=== PATIENT | male | born 1930 | race Caucasian/White ===

== ENCOUNTER 2017-08-01 03:27 | Inpatient (IN) | payer MEDICARE ==
--- NOTE | 2017-08-01 04:06 | PDOC.FPRHP ---
- History of Present Illness Chief Complaint: weakness History of Present Illness: This is an 87 y/o M with a PMHx of a-fib, CAD s/p CABG, HTN, HLD who presents to the ED complaining of weakness. The patient reports that 3 days ago he started developing generalized weakness where he was struggling getting out of the bed, walking, doing his normal routine. He reports falling on his side 3 days ago as well due to this weakness and hurting his ribs on his right side. He did not seek any medical attention at that time. The only other symptoms the patient endorses is 3 days of worsened urinary incontinence. He reports that he has had more trouble making it to the bathroom on time. He has a history significant for BPH. He also reports a cough that has been chronic and is non- productive as well as constant sinus drainage that he describes as going on for years. The patient has also been having watery drainage from his eyes over the past few days. The patient denies CP, SOB, dysuria, abd pain, N/V/D. ED Course: The patient was evaluated in the [facility] and was given 1L NS, tylenol 1g, aspirin 324mg, Rocephin 1g, and started on a diltiazem drip. - Allergies/Adverse Reactions Allergies Allergy/AdvReac Type Severity Reaction Status Date / Time atropine sulfate Allergy Unknown Verified 07/24/13 16:43 [From Lomotil] diphenoxylate HCl Allergy Unknown Verified 07/24/13 16:43 [From Lomotil] codeine Allergy Verified 07/24/13 16:43 dronedarone [From Multaq] Allergy Verified 08/01/17 06:52 morphine Allergy Verified 07/24/13 16:43 tramadol Allergy Verified 08/01/17 06:53 - Home Medications Medication Instructions Recorded Confirmed Type Levothyroxine Sodium [Synthroid] 50 mcg PO DAILY 08/05/13 02/28/15 History Lisinopril [Zestril] 20 mg PO HS 08/05/13 02/28/15 History Aspirin [Ecotrin Low Strength] 81 mg PO HS 02/17/15 02/28/15 History Nitroglycerin [Nitrostat] 0.4 mg SL Q5MIN PRN 02/17/15 02/28/15 History Isosorbide Mononitrate [Imdur ER] 30 mg PO DAILY #0 tab 02/18/15 02/28/15 Rx Fluticasone Propionate [Flonase 1 spray EA NARE HS 02/27/15 02/27/15 History Nasal Christoval] Amlodipine [Norvasc] 5 mg PO DAILY 08/01/17 08/01/17 History Apixaban [Eliquis] 2.5 mg PO BID 08/01/17 08/01/17 History Ezetimibe [Zetia] 10 mg PO DAILY 08/01/17 08/01/17 History Ferrous Sulfate 325 mg PO DAILY 08/01/17 08/01/17 History Naproxen Sodium [Aleve] 220 mg PO DAILY 08/01/17 08/01/17 History Omeprazole 20 mg PO BID 08/01/17 08/01/17 History - History PMHx: 1. a-fib 2. CAD s/p CABG 3. HTN 4. HLD 5. Hypothyroidism 6. GERD 7. BPH PSHx: 1. CABG 2. Cholecystectomy 3. Back surgery FHx: Brother - CAD (87) Social: Denies tobacco, EtOH, or drug use PCP: Dr. Fermín Krueger Director Social Welfare: Dr. Art Ortiz - Review of Systems General: reports: fatigue. denies: fever/chills Eyes: denies: eye pain, vision changes ENT: reports: nasal congestion. denies: rhinorrhea Respiratory: reports: cough. denies: congestion, shortness of breath Cardiovascular: denies: chest pain, palpitation, edema Gastrointestinal: denies: nausea, vomiting, diarrhea, constipation, abdominal pain Genitourinary: reports: incontinence. denies: dysuria Skin: denies: rashes, lesions Musculoskeletal: reports: tenderness (R lower ribs). denies: pain Neurological: reports: weakness (generalized). denies: numbness - Vital signs BP: 147/73 HR: 107 (was 123 at the [facility]) RR: 19 Tmax: 100.9 Pox: 97% on RA Wt: 65.77kg - Physical Exam Constitutional: NAD, awake, alert and oriented, well developed HEENT: PERRLA, EOMI, no scleral icterus, grossly normal vision, normal nasal mucosa, MMM, oropharynx clear, other (erythematous conjunctiva, hearing aids in place bilaterally) Neck: supple, no LAD, no bruits -Heart: irregularly irregular, tachycardic, systolic murmur, no rubs, no peripheral edema Lungs: CTAB, no respiratory distress, no rales/rhonchi, no wheezing, no retractions Abdomen: soft, non-tender, bowel sounds present, no masses/distention Musculoskeletal: normal structure, normal tone, ROM grossly normal, other ( tenderness over R lower ribs) Neurological: no focal deficit, normal sensation Skin: no rash/lesions, good turgor, capillary refill <2 seconds Psychiatric: normal mood and affect, good judgment and insight FMR H&P: Results - Labs Lab results: Laboratory Tests 08/01/17 08/01/17 08/01/17 01:29 01:29 01:29 WBC 12.6 H Hgb 12.5 L Hct 37.9 L Plt Count 200 Neutrophils % (Manual) 64 Band Neuts % (Manual) 19 H Sodium 135 L Potassium 4.1 Chloride 106 Carbon Dioxide 20 L BUN 31 H Creatinine 1.69 H Estimated GFR (MDRD) 38 Lactic Acid CK-MB (CK-2) 5.7 Troponin I 0.030 H Ur Specific [place] Urine Protein Urine Glucose (UA) Urine Ketones Urine Blood Urine Nitrite Ur Leukocyte Esterase Urine WBC Urine Bacteria 08/01/17 08/01/17 01:50 02:10 WBC Hgb Hct Plt Count Neutrophils % (Manual) Band Neuts % (Manual) Sodium Potassium Chloride Carbon Dioxide BUN Creatinine Estimated GFR (MDRD) Lactic Acid 0.9 CK-MB (CK-2) Troponin I Ur Specific [place] 1.020 Urine Protein 100 H Urine Glucose (UA) Negative Urine Ketones Trace H Urine Blood Moderate H Urine Nitrite Negative Ur Leukocyte Esterase Negative Urine WBC 0-3 Urine Bacteria None Seen - EKG Interpretation EKG: a-fib with rapid ventricular response - Radiology Interpretation Chest x-ray Status: image reviewed by me Additional comment: Pending official read, concern for possible infiltrate vs atelectasis FMR H&P: A/P - Problem List (1) Atrial fibrillation with rapid ventricular response Current Visit: Yes Status: Acute Code(s): I48.91 - UNSPECIFIED ATRIAL FIBRILLATION (2) Systemic inflammatory response syndrome, unspecified Current Visit: Yes Status: Acute Code(s): R65.10 - SIRS OF NON-INFECTIOUS ORIGIN W/O ACUTE ORGAN DYSFUNCTION (3) Elevated troponin Current Visit: Yes Status: Acute Code(s): R74.8 - ABNORMAL LEVELS OF OTHER SERUM ENZYMES (4) GERD (gastroesophageal reflux disease) Current Visit: Yes Status: Acute Code(s): K21.9 - GASTRO-ESOPHAGEAL REFLUX DISEASE WITHOUT ESOPHAGITIS Qualifiers: Esophagitis presence: without esophagitis Qualified Code(s): K21.9 - Gastro -esophageal reflux disease without esophagitis (5) Hyperlipidemia Current Visit: Yes Status: Acute Code(s): E78.5 - HYPERLIPIDEMIA, UNSPECIFIED Qualifiers: Hyperlipidemia type: unspecified Qualified Code(s): E78.5 - Hyperlipidemia , unspecified (6) CAD (coronary artery disease) Current Visit: Yes Status: Acute Code(s): I25.10 - ATHSCL HEART DISEASE OF [place] CORONARY ARTERY W/O ANG PCTRS Qualifiers: Coronary Disease-Associated Artery/Lesion type: [place] artery [place] vs. transplanted heart: [place] heart Associated angina: angina presence unspecified Qualified Code(s): I25.10 - Atherosclerotic heart disease of [place] coronary artery without angina pectoris (7) Hypertension Current Visit: No Status: Acute Code(s): I10 - ESSENTIAL (PRIMARY) HYPERTENSION Qualifiers: Hypertension type: essential hypertension Qualified Code(s): I10 - Essential (primary) hypertension (8) Hypothyroidism Current Visit: No Status: Acute Code(s): E03.9 - HYPOTHYROIDISM, UNSPECIFIED Qualifiers: Hypothyroidism type: acquired Qualified Code(s): E03.9 - Hypothyroidism, unspecified (9) BPH (benign prostatic hyperplasia) Current Visit: Yes Status: Acute Code(s): N40.0 - BENIGN PROSTATIC HYPERPLASIA WITHOUT LOWER URINRY TRACT SYMP Qualifiers: Lower urinary tract symptom presence: symptoms present Lower urinary tract symptom detail: unspecified Qualified Code(s): N40.1 - Benign prostatic hyperplasia with lower urinary tract symptoms - Plan A-fib w/ RVR The patient has a longstanding history of a-fib and is treated by Dr. Ortiz at the [facility]. The patient is a poor historian and doesn't know what medications he used to be on, but does not appear to be on a rate or rhythm control med at this time. He is anticoagulated with Eliquis 2.5 mg BID. The a-fib with RVR is likely 2/2 infection. The patient was started on a Cardizem gtt in the ED. -Continue Cardizem gtt, will titrate as needed to rate <100 -TSH, Mag, Phos -Continue Eliquis and ASA -Trend Cardiac Enzymes as patient's initial trop was in the indeterminate range -Request records from Dr. Ortiz's office SIRS / with unknown source - suspected CAP The patient had fever to 100.9 in the [facility] as well as leukocytosis with 19 % bands and tachycardia. The patient has had a chronic cough, but also has a possible infiltrate on CXR. Will await official read from the radiologist. S/P fluid bolus in the ED -Rocephin and Azithromycin -NS @ 125 -Urine Cx -Blood Cx Indeterminate Troponins Initial trop was 0.03. The patient has a h/o 4v CABG. The patient reports his last nuclear stress test was [address] Ortiz and was normal. -Continue aspirin -Trend Cardiac Enzymes -Monitor on Tele -Repeat EKG for any chest pain CKD3 The patient appears at his baseline creatinine. -avoid nephrotoxic agents HTN -Continue home meds Hypothyroidism -TSH -Continue home meds CAD s/p CABG -Continue home meds -Heart healthy diet HLD -Continue home meds GERD -Continue home meds Disposition/LOS: Admit to Tele, Length of stay likely 2 days FMR H&P: Upper Level - Pertinent history This is an 87 yo WM w/ PMH CAD s/p CABG x4, Paroxysmal A-fib, HTN, HLD, hypothyroidism, presents w/ 3 day history of weakness. He was found to be in A- fib w/ RVR at [facility] and given ASA and Rocephin, 1L NS, as well as started on Diltiazem and transferred here. His Flu swab was negative. He does have a chronic cough, and was found to have a fever of 100.9. PE: Gen: AOx4, In no acute distress. Lungs: CTA bilaterally, but mildly diminished air movement. CV: Irregularly, irregular. +2 systolic murmur Neck: No lymph nodes, no carotid bruits Abd: Non-TTP. No rigiditiy, no guarding. Ext: No edema bilaterally LE. Neuro: GCS 15. Negative Pronator drift. Strength +5/5 UE and LE symmetric bilaterally. CN II-XII intact grossly. A/p: 1) A-fib w/ RVR - possibly due to infection from CAP. Continue Cardizem drip. We will check a TSH, Mag, Phos, Urine culture, blood Cx. Continue Rocephin. F/ u with Cardiac enzymes x3. Continue Eliquis, ASA and home medications. 2) Suspected CAP - Rocephin and Azithromycin, fluids. Repeat CXR in 3-4 weeks outpatient to ensure resolves. 3) Hematuria - likely 2/2 traumatic de leon placement. F/u with PCP in 1 week for repeat UA. F/u with urine Cx. 4) Metabolic acidosis - likely 2/2 mild dehydration. F/u with BMP tomorrow. Gentle Fluids. 5) CKD3 - avoid nephrotoxic medications. 6) Indeterminant Troponin's - We will repeat CE x3. Per patient, last nuclear stress test was with Dr. Angel marinelli 6 months ago, and he was told it was "good ". F/u with records from Dr. Ortiz's office. 7) HTN - continue home medications as BP tolerates them. 8) Hypothyroidism - continue home medications. F/u with TSH. - Plan Date/Time: 08/01/17 0103 I, Gwendolyn Ace DO, have evaluated this patient and agree with findings/plan as outlined by international specialist resident. Pertinent changes/additions are listed here. Attending Addendum - Attending Addendum Date/Time: 08/01/17 [id number] I personally evaluated the patient and discussed the management with Dr. Schwarz I agree with the History, Examination, Assessment and Plan documented above with any addition or exceptions noted below. Critical shortage of IV Diltiazem need conversion po BB or diltiazem. Obtain Cardiology records Art Ortiz inquire last echocardiogram repeat as appropriate antibiotic coverage for CAP await culture results.
[2017-08-01] MEDS ORDERED: Diltiazem 125 MG in Sodium Chloride 0.9% 100 ML IVPB SCH (06:03)
[2017-08-01] MEDS ORDERED: Sodium Chloride 0.9% 1,000 ML IV SCH (06:03)
[2017-08-01 06:30] VITALS: BMI 25.6
[2017-08-01] MEDS ORDERED: Azithromycin 500 MG in Sodium Chloride 0.9% 250 ML 250 ML IVPB SCH (06:30)
[2017-08-01 06:59] LABS: Magnesium 1.7 mg/dL (1.6-2.6); Phosphorus 2.2 mg/dL (2.3-4.7)
[2017-08-01 07:07] LABS: Troponin I 0.038 ng/mL (< 0.028)
[2017-08-01 07:10] LABS: CKMB 6.7 ng/mL (0-6.6)
[2017-08-01] MEDS: Ezetimibe 10 MG TAB PO SCH (08:18)
[2017-08-01] MEDS: Ferrous Sulfate 325 MG TAB PO SCH (08:18)
[2017-08-01] MEDS: Apixaban 5 MG TAB PO SCH ×2 (08:18→20:41)
[2017-08-01] MEDS: Amlodipine 5 MG TAB PO SCH (08:18)
[2017-08-01] MEDS ORDERED: Diltiazem HCl SR 60 mg Capsule PO SCH (09:00)
[2017-08-01 09:44] LABS: CKMB 6.3 ng/mL (0-6.6); Troponin I 0.028 ng/mL (< 0.028)
--- NOTE | 2017-08-01 16:03 | RAD ---
RIGHT RIBS THREE VIEWS CHEST ONE VIEW: History: Fall. Right chest wall pain. FINDINGS: No displaced rib fracture or pneumothorax are apparent. Multifocal parenchymal patchy opacity involvi ng the right upper and lower lobes and the left upper lobe have progressed since the prior study. Oziel nting of the left lateral costophrenic angle has the appearance of a small amount of pleural fluid. M ediastinum is midline with post-operative changes and aortic calcification. IMPRESSION: 1. No evidence of displaced rib fracture or pneumothorax. 2. Possession of multifocal common bilateral parenchymal infiltrates and left pleural fluid. Clinical correlation regarding other signs of symptoms of multifocal pneumonitis is required. Close continue radiographic follow up with upright PA and lateral views of the chest suggested. POS: BHANU
[2017-08-01] MEDS: Lisinopril 10 MG TAB PO SCH (20:41)
[2017-08-01] MEDS: Aspirin 81 mg Enteric Coated Tablet PO SCH (20:41)
[2017-08-01] MEDS: Fluticasone Propionate Nasal Spray 16 gm Bottle NASAL SCH (21:53)
[2017-08-02] MEDS: cefTRIAXone\\ROCEPHIN 1 GM in Syringe 10 ML SLOW IVP SCH (04:09)
[2017-08-02 05:31] LABS: #Eosinphils 0.1 thou/uL (0.0-0.7); #Lymphocytes 2.1 thou/uL (1.20-3.40); #Monocytes 1.2 thou/uL (0.11-0.59); #Neutrophils 10.3 thou/uL (1.40-6.50); %Basophils 0.2 % (0.0-1.0); %Eosinophils 0.4 % (0.0-10.0); %Monocytes 9.1 % (0.0-10.0); %Neutrophils 75.4 % (42.0-75.0); Hemoglobin 12.6 g/dL (14.0-18.0); Mean Corpuscular HGB CONC 33.1 g/dL (32.0-36.0); Mean Corpuscular Hemoglobin 33.5 pg (27.0-31.0); Mean Platelet Volume 8.2 fL (7.4-10.4); Platelet Count 230 thou/uL (130-400); RBC Distribution Width 12.4 % (11.5-14.5); Red Blood Cell (RBC) Count 3.76 mill/uL (4.70-6.10); White Blood Cell (WBC) Count 13.7 thou/uL (4.8-10.8)
[2017-08-02 05:57] LABS: Anion Gap 16 mmol/L (10-20); BUN (Urea Nitrogen) 28 mg/dL (8.4-25.7); Calc. Creatinine Clearance 34 mL/min (70-130); Calcium 9.1 mg/dL (7.8-10.44); Carbon Dioxide 16 mmol/L (23-31); Chloride 106 mmol/L (98-107); Estimated GFR-MDRD 45; Glucose 95 mg/dL (83-110); Potassium 4.2 mmol/L (3.5-5.1); Sodium 134 mmol/L (136-145)
[2017-08-02] MEDS: Levothyroxine Sodium 50 MCG TAB PO SCH (06:02)
--- NOTE | 2017-08-02 06:10 | PDOC.FM ---
- Subjective Subjective: Patient states he slept well overnight. He woke up this morning and felt weak. It was noted that he went back into A-fib with RVR at 06:42 this morning which is approximately when his weakness began. He denies palpitations, but usually he doesn't ever feel them. He denies chest pain, sob, n/v/d. He had no other complaints this morning. - Objective Vital Signs & Weight: Vital Signs (12 hours) Temp Pulse Resp BP BP Pulse Ox 08/02/17 00:00 98.8 F 93 20 132/60 94 L 08/01/17 20:41 146/63 H 08/01/17 20:00 98.5 F 79 20 146/73 H 95 Weight Weight 69.763 kg I&O: 07/31/17 08/01/17 08/02/17 06:59 06:59 06:59 Intake Total 720 Output Total 620 Balance 100 Result Diagrams: 08/02/17 04:07 08/02/17 04:07 <Brent Baker - Last Filed: 08/02/17 08:45> - Objective Vital Signs & Weight: Vital Signs (12 hours) Temp Pulse Resp BP Pulse Ox 08/02/17 08:00 98.3 F 97 18 96 08/02/17 07:15 98.3 F 97 18 175/80 H 96 08/02/17 04:00 98.7 F 107 H 20 136/71 95 Weight Weight 69.717 kg I&O: 08/01/17 08/02/17 08/03/17 06:59 06:59 06:59 Intake Total 1140 Output Total 1070 Balance 70 Result Diagrams: 08/02/17 04:07 08/02/17 04:07 <Tushar Cortez - Last Filed: 08/02/17 12:29> Phys Exam - Physical Examination HEENT: moist MMs Respiratory: no wheezing, clear to auscultation bilateral Cardiovascular: irregular Gastrointestinal: soft, non-tender, no distention, positive bowel sounds Musculoskeletal: no edema Neurological: non-focal, moves all 4 limbs Lymphatic: no nodes Psychiatric: normal affect, A&O x 3 Skin: no rash <Brent Baker - Last Filed: 08/02/17 08:45> Dx/Plan (1) Atrial fibrillation with rapid ventricular response Code(s): I48.91 - UNSPECIFIED ATRIAL FIBRILLATION Status: Acute (2) BPH (benign prostatic hyperplasia) Code(s): N40.0 - BENIGN PROSTATIC HYPERPLASIA WITHOUT LOWER URINRY TRACT SYMP Status: Acute QualifierTitle: Lower urinary tract symptom presence: symptoms present Lower urinary tract symptom detail: unspecified Qualified Code(s): N40.1 - Benign prostatic hyperplasia with lower urinary tract symptoms (3) CAD (coronary artery disease) Code(s): I25.10 - ATHSCL HEART DISEASE OF [place] CORONARY ARTERY W/O ANG PCTRS Status: Acute QualifierTitle: Coronary Disease-Associated Artery/Lesion type: [place] artery [place] vs. transplanted heart: [place] heart Associated angina: angina presence unspecified Qualified Code(s): I25.10 - Atherosclerotic heart disease of [place] coronary artery without angina pectoris (4) Elevated troponin Code(s): R74.8 - ABNORMAL LEVELS OF OTHER SERUM ENZYMES Status: Acute (5) GERD (gastroesophageal reflux disease) Code(s): K21.9 - GASTRO-ESOPHAGEAL REFLUX DISEASE WITHOUT ESOPHAGITIS Status: Acute QualifierTitle: Esophagitis presence: without esophagitis Qualified Code( s): K21.9 - Gastro-esophageal reflux disease without esophagitis (6) Hyperlipidemia Code(s): E78.5 - HYPERLIPIDEMIA, UNSPECIFIED Status: Acute QualifierTitle: Hyperlipidemia type: unspecified Qualified Code(s): E78.5 - Hyperlipidemia, unspecified (7) Systemic inflammatory response syndrome, unspecified Code(s): R65.10 - SIRS OF NON-INFECTIOUS ORIGIN W/O ACUTE ORGAN DYSFUNCTION Status: Acute (8) Hypertension Code(s): I10 - ESSENTIAL (PRIMARY) HYPERTENSION Status: Acute QualifierTitle: Hypertension type: essential hypertension Qualified Code( s): I10 - Essential (primary) hypertension (9) Hypothyroidism Code(s): E03.9 - HYPOTHYROIDISM, UNSPECIFIED Status: Acute QualifierTitle: Hypothyroidism type: acquired Qualified Code(s): E03.9 - Hypothyroidism, unspecified - Plan Plan: A-fib w/ RVR The patient has a longstanding history of a-fib and is treated by Dr. Ortiz at the [facility]. The patient is a poor historian and doesn't know what medications he used to be on, but does not appear to be on a rate or rhythm control med at this time. He is anticoagulated with Eliquis 2.5 mg BID. The a-fib with RVR is likely 2/2 infection. The patient was started on a Cardizem gtt in the ED. -Cardizem gtt discontinued. Started oral Diltiazem rates been below 100 -Continue Eliquis and ASA SIRS 2/2 with unknown source - suspected CAP The patient had fever to 100.9 in the [place] ED as well as leukocytosis with 19 % bands and tachycardia. The patient has had a chronic cough, but also has a possible infiltrate on CXR. Will await official read from the radiologist. S/P fluid bolus in the ED -Rocephin and Azithromycin -NS @ 125 -Urine Cx -Blood Cx Indeterminate Troponins Initial trop was 0.03. The patient has a h/o 4v CABG. The patient reports his last nuclear stress test was [address] Ortiz and was normal. -Continue aspirin -Cardiac enzymes trended down. -Monitor on Tele -Repeat EKG for any chest pain CKD3 The patient appears at his baseline creatinine. -avoid nephrotoxic agents HTN -Continue home meds Hypothyroidism -Continue home meds CAD s/p CABG -Continue home meds -Heart healthy diet HLD -Continue home meds GERD -Continue home meds Disposition: Stable, will await culture results and sustained rate control. <Brent Baker - Last Filed: 08/02/17 08:45> (1) Atrial fibrillation with rapid ventricular response Code(s): I48.91 - UNSPECIFIED ATRIAL FIBRILLATION Status: Acute (2) Systemic inflammatory response syndrome, unspecified Code(s): R65.10 - SIRS OF NON-INFECTIOUS ORIGIN W/O ACUTE ORGAN DYSFUNCTION Status: Acute (3) Elevated troponin Code(s): R74.8 - ABNORMAL LEVELS OF OTHER SERUM ENZYMES Status: Acute (4) GERD (gastroesophageal reflux disease) Code(s): K21.9 - GASTRO-ESOPHAGEAL REFLUX DISEASE WITHOUT ESOPHAGITIS Status: Acute Qualifiers: Esophagitis presence: without esophagitis Qualified Code(s): K21.9 - Gastro -esophageal reflux disease without esophagitis (5) Hyperlipidemia Code(s): E78.5 - HYPERLIPIDEMIA, UNSPECIFIED Status: Acute Qualifiers: Hyperlipidemia type: unspecified Qualified Code(s): E78.5 - Hyperlipidemia , unspecified (6) CAD (coronary artery disease) Code(s): I25.10 - ATHSCL HEART DISEASE OF [place] CORONARY ARTERY W/O ANG PCTRS Status: Acute Qualifiers: Coronary Disease-Associated Artery/Lesion type: [place] artery [place] vs. transplanted heart: [place] heart Associated angina: angina presence unspecified Qualified Code(s): I25.10 - Atherosclerotic heart disease of [place] coronary artery without angina pectoris (7) Hypertension Code(s): I10 - ESSENTIAL (PRIMARY) HYPERTENSION Status: Acute Qualifiers: Hypertension type: essential hypertension Qualified Code(s): I10 - Essential (primary) hypertension (8) Hypothyroidism Code(s): E03.9 - HYPOTHYROIDISM, UNSPECIFIED Status: Acute Qualifiers: Hypothyroidism type: acquired Qualified Code(s): E03.9 - Hypothyroidism, unspecified (9) BPH (benign prostatic hyperplasia) Code(s): N40.0 - BENIGN PROSTATIC HYPERPLASIA WITHOUT LOWER URINRY TRACT SYMP Status: Acute Qualifiers: Lower urinary tract symptom presence: symptoms present Lower urinary tract symptom detail: unspecified Qualified Code(s): N40.1 - Benign prostatic hyperplasia with lower urinary tract symptoms <Tushar Cortez - Last Filed: 08/02/17 12:29> Attending Addendum - Attending Addendum Date/Time: 08/02/17 1227 I personally evaluated the patient and discussed the management with Dr. Baker I agree with the History, Examination, Assessment and Plan documented above with any addition or exceptions noted below.note CXR report Zosyn added to iv regimen cover possible aspiration, po cardizem for heart rate control, Magnesium IV today. <Tushar Cortez - Last Filed: 08/02/17 12:29>
[2017-08-02] MEDS ORDERED: Metoprolol Tartrate 5 MG/5 ML VIAL IVP PRN (08:08)
[2017-08-02] MEDS: Azithromycin 250 MG TAB PO SCH (08:20)
[2017-08-02] MEDS: Amlodipine 5 MG TAB PO SCH (08:20)
[2017-08-02] MEDS: Apixaban 5 MG TAB PO SCH ×2 (08:20→21:35)
[2017-08-02] MEDS: Ezetimibe 10 MG TAB PO SCH (08:21)
[2017-08-02] MEDS: Ferrous Sulfate 325 MG TAB PO SCH (08:21)
--- NOTE | 2017-08-02 09:52 | RAD ---
CHEST PA AND LATERAL: History: 87-year-old male with history of shortness of breath. Comparison: 08-01-17 FINDINGS: Post underlying sternotomy. Some progressive parenchymal changes in the right mid lung zone and perih ilar region as well as the right lower lobe. In addition there appear to be more marked linear and in terstitial increased markings bilaterally in the perihilar region. Stable left pleural thickening. St able new small bilateral pleural effusions. IMPRESSION: Worsening alveolar parenchymal changes in the right mid lung zone and right infra hilar region inge duarte concern for some right lower lobe and right midlung zone pneumonia. Developing bilateral vascular c ongestion, interstitial edema, and pleural effusions probably representing some degree of congestive heart failure and pulmonary edema as well. Continued short term follow up for complete clearing is alejandro ggested. Code T POS: BHANU
[2017-08-02] MEDS ORDERED: Magnesium Sulfate 1 GM, Admixture Fee 1 EACH in Sodium Chloride 0.9% 100 ML IVPB SCH (10:45)
[2017-08-02] MEDS: Piperacillin/Tazobactam 3.375 GM in Sodium Chloride 0.9% 100 ML IVPB SCH (18:15)
[2017-08-02] MEDS: Lisinopril 10 MG TAB PO SCH (21:35)
[2017-08-02] MEDS: Aspirin 81 mg Enteric Coated Tablet PO SCH (21:35)
[2017-08-02] MEDS: Fluticasone Propionate Nasal Spray 16 gm Bottle NASAL SCH (21:36)
[2017-08-03] MEDS: Piperacillin/Tazobactam 3.375 GM in Sodium Chloride 0.9% 100 ML IVPB SCH ×5 (00:15→18:23)
[2017-08-03] MEDS ORDERED: Furosemide 40 MG/4 ML VIAL ONE (00:38)
[2017-08-03] MEDS: cefTRIAXone\\ROCEPHIN 1 GM in Syringe 10 ML SLOW IVP SCH (04:28)
[2017-08-03] MEDS ORDERED: Acetaminophen 325 MG TAB PO SCH (05:23)
[2017-08-03 05:45] LABS: #Lymphocytes 1.7 thou/uL (1.20-3.40); #Monocytes 1.4 thou/uL (0.11-0.59); #Neutrophils 14.1 thou/uL (1.40-6.50); %Basophils 0.1 % (0.0-1.0); %Eosinophils 0.1 % (0.0-10.0); %Lymphocytes 10.1 % (21.0-51.0); %Monocytes 8.2 % (0.0-10.0); %Neutrophils 81.5 % (42.0-75.0); Hemoglobin 12.8 g/dL (14.0-18.0); Mean Corpuscular HGB CONC 31.6 g/dL (32.0-36.0); Mean Platelet Volume 8.7 fL (7.4-10.4); Platelet Count 254 thou/uL (130-400); RBC Distribution Width 12.6 % (11.5-14.5); White Blood Cell (WBC) Count 17.3 thou/uL (4.8-10.8)
[2017-08-03 05:46] LABS: Anion Gap 18 mmol/L (10-20); BUN (Urea Nitrogen) 24 mg/dL (8.4-25.7); Calc. Creatinine Clearance 31 mL/min (70-130); Calcium 9.6 mg/dL (7.8-10.44); Carbon Dioxide 17 mmol/L (23-31); Chloride 101 mmol/L (98-107); Estimated GFR-MDRD 41; Glucose 96 mg/dL (83-110); Potassium 4.3 mmol/L (3.5-5.1); Sodium 132 mmol/L (136-145)
[2017-08-03] MEDS: Levothyroxine Sodium 50 MCG TAB PO SCH (05:52)
[2017-08-03] MEDS ORDERED: Furosemide 40 MG/4 ML VIAL SLOW IVP SCH (06:00)
--- NOTE | 2017-08-03 06:24 | PDOC.FM ---
- Subjective Subjective: Patient had an episode of desaturation and sob overnight. He was given IV lasix with diuresis. He states his breathing is not labored any longer. He denies chest pain or sob. He does state that he is very tired today. No other complaints this morning. - Objective Vital Signs & Weight: Vital Signs (12 hours) Temp Pulse Resp BP BP Pulse Ox 08/03/17 00:00 89 L 08/02/17 21:35 133/64 08/02/17 20:25 100.4 F H 95 18 133/64 100 08/02/17 20:00 100.4 F H 95 18 100 Weight Weight 69.717 kg I&O: 08/01/17 08/02/17 08/03/17 06:59 06:59 06:59 Intake Total 1140 720 Output Total 1070 Balance 70 720 Result Diagrams: 08/03/17 03:56 08/03/17 03:56 <Brent Baker - Last Filed: 08/03/17 08:37> - Objective Vital Signs & Weight: Vital Signs (12 hours) Temp Pulse Pulse Pulse Resp BP BP 08/03/17 09:42 97 101 H 112/59 L 110/58 L 08/03/17 08:34 98.3 F 95 22 H 08/03/17 08:00 98.3 F 95 22 H 08/03/17 07:44 92 20 08/03/17 04:00 101.2 F H 114 H 22 H 08/03/17 00:00 BP BP Pulse Ox Pulse Ox 08/03/17 09:42 91 L 08/03/17 08:34 120/59 L 95 08/03/17 08:00 95 08/03/17 07:44 95 08/03/17 04:00 155/81 H 92 L 08/03/17 00:00 89 L Weight Weight 69.717 kg I&O: 08/02/17 08/03/17 08/04/17 06:59 06:59 06:59 Intake Total 1140 1180 Output Total 1070 375 Balance 70 805 Result Diagrams: 08/03/17 03:56 08/03/17 03:56 <Tushar Cortez - Last Filed: 08/03/17 11:33> Phys Exam - Physical Examination HEENT: moist MMs Crackles at the bases bilaterally Cardiovascular: irregular Gastrointestinal: soft, non-tender, no distention, positive bowel sounds Neurological: non-focal, moves all 4 limbs Psychiatric: normal affect, A&O x 3 <Brent Baker - Last Filed: 08/03/17 08:37> Dx/Plan (1) Atrial fibrillation with rapid ventricular response Code(s): I48.91 - UNSPECIFIED ATRIAL FIBRILLATION Status: Acute (2) BPH (benign prostatic hyperplasia) Code(s): N40.0 - BENIGN PROSTATIC HYPERPLASIA WITHOUT LOWER URINRY TRACT SYMP Status: Acute QualifierTitle: Lower urinary tract symptom presence: symptoms present Lower urinary tract symptom detail: unspecified Qualified Code(s): N40.1 - Benign prostatic hyperplasia with lower urinary tract symptoms (3) CAD (coronary artery disease) Code(s): I25.10 - ATHSCL HEART DISEASE OF [place] CORONARY ARTERY W/O ANG PCTRS Status: Acute QualifierTitle: Coronary Disease-Associated Artery/Lesion type: [place] artery [place] vs. transplanted heart: [place] heart Associated angina: angina presence unspecified Qualified Code(s): I25.10 - Atherosclerotic heart disease of [place] coronary artery without angina pectoris (4) Elevated troponin Code(s): R74.8 - ABNORMAL LEVELS OF OTHER SERUM ENZYMES Status: Acute (5) GERD (gastroesophageal reflux disease) Code(s): K21.9 - GASTRO-ESOPHAGEAL REFLUX DISEASE WITHOUT ESOPHAGITIS Status: Acute QualifierTitle: Esophagitis presence: without esophagitis Qualified Code( s): K21.9 - Gastro-esophageal reflux disease without esophagitis (6) Hyperlipidemia Code(s): E78.5 - HYPERLIPIDEMIA, UNSPECIFIED Status: Acute QualifierTitle: Hyperlipidemia type: unspecified Qualified Code(s): E78.5 - Hyperlipidemia, unspecified (7) Systemic inflammatory response syndrome, unspecified Code(s): R65.10 - SIRS OF NON-INFECTIOUS ORIGIN W/O ACUTE ORGAN DYSFUNCTION Status: Acute (8) Hypertension Code(s): I10 - ESSENTIAL (PRIMARY) HYPERTENSION Status: Acute QualifierTitle: Hypertension type: essential hypertension Qualified Code( s): I10 - Essential (primary) hypertension (9) Hypothyroidism Code(s): E03.9 - HYPOTHYROIDISM, UNSPECIFIED Status: Acute QualifierTitle: Hypothyroidism type: acquired Qualified Code(s): E03.9 - Hypothyroidism, unspecified - Plan Plan: A-fib w/ RVR The patient has a longstanding history of a-fib and is treated by Dr. Ortiz at the [facility]. The patient is a poor historian and doesn't know what medications he used to be on, but does not appear to be on a rate or rhythm control med at this time. He is anticoagulated with Eliquis 2.5 mg BID. The a-fib with RVR is likely 2/2 infection. The patient was started on a Cardizem gtt in the ED. -Cardizem gtt discontinued. Started oral Diltiazem -Continue Eliquis and ASA - Rates in 100-110 this morning. - Will give Lasix PRN if fluid overload is apparent. SIRS 2/2 with unknown source - suspected CAP The patient had fever to 100.9 in the [facility] ED as well as leukocytosis with 19 % bands and tachycardia. The patient has had a chronic cough, but also has a possible infiltrate on CXR. Will await official read from the radiologist. S/P fluid bolus in the ED -Rocephin and Azithromycin, Zosyn -NS @ 125 -Urine Cx -Blood Cx Indeterminate Troponins Initial trop was 0.03. The patient has a h/o 4v CABG. The patient reports his last nuclear stress test was [address] Ortiz and was normal. -Continue aspirin -Cardiac enzymes trended down. -Monitor on Tele -Repeat EKG for any chest pain CKD3 The patient appears at his baseline creatinine. -avoid nephrotoxic agents HTN -Continue home meds Hypothyroidism -Continue home meds CAD s/p CABG -Continue home meds -Heart healthy diet HLD -Continue home meds GERD -Continue home meds Disposition: Stable, will await culture results and sustained rate control. <Brent Baker - Last Filed: 08/03/17 08:37> (1) Atrial fibrillation with rapid ventricular response Code(s): I48.91 - UNSPECIFIED ATRIAL FIBRILLATION Status: Acute (2) Systemic inflammatory response syndrome, unspecified Code(s): R65.10 - SIRS OF NON-INFECTIOUS ORIGIN W/O ACUTE ORGAN DYSFUNCTION Status: Acute (3) Elevated troponin Code(s): R74.8 - ABNORMAL LEVELS OF OTHER SERUM ENZYMES Status: Acute (4) GERD (gastroesophageal reflux disease) Code(s): K21.9 - GASTRO-ESOPHAGEAL REFLUX DISEASE WITHOUT ESOPHAGITIS Status: Acute Qualifiers: Esophagitis presence: without esophagitis Qualified Code(s): K21.9 - Gastro -esophageal reflux disease without esophagitis (5) Hyperlipidemia Code(s): E78.5 - HYPERLIPIDEMIA, UNSPECIFIED Status: Acute Qualifiers: Hyperlipidemia type: unspecified Qualified Code(s): E78.5 - Hyperlipidemia , unspecified (6) CAD (coronary artery disease) Code(s): I25.10 - ATHSCL HEART DISEASE OF [place] CORONARY ARTERY W/O ANG PCTRS Status: Acute Qualifiers: Coronary Disease-Associated Artery/Lesion type: [place] artery [place] vs. transplanted heart: [place] heart Associated angina: angina presence unspecified Qualified Code(s): I25.10 - Atherosclerotic heart disease of [place] coronary artery without angina pectoris (7) Hypertension Code(s): I10 - ESSENTIAL (PRIMARY) HYPERTENSION Status: Acute Qualifiers: Hypertension type: essential hypertension Qualified Code(s): I10 - Essential (primary) hypertension (8) Hypothyroidism Code(s): E03.9 - HYPOTHYROIDISM, UNSPECIFIED Status: Acute Qualifiers: Hypothyroidism type: acquired Qualified Code(s): E03.9 - Hypothyroidism, unspecified (9) BPH (benign prostatic hyperplasia) Code(s): N40.0 - BENIGN PROSTATIC HYPERPLASIA WITHOUT LOWER URINRY TRACT SYMP Status: Acute Qualifiers: Lower urinary tract symptom presence: symptoms present Lower urinary tract symptom detail: unspecified Qualified Code(s): N40.1 - Benign prostatic hyperplasia with lower urinary tract symptoms <Tushar Cortez - Last Filed: 08/03/17 11:33> Attending Addendum - Attending Addendum Date/Time: 08/03/17 1123 I personally evaluated the patient and discussed the management with Dr. Baker I agree with the History, Examination, Assessment and Plan documented above with any addition or exceptions noted below.Note of episode last PM will start Vancomycin for MRSA coverage and Cardiology consult for opinion rate control for improved perfusion will obtain baseline BNP today. <Tushar Cortez - Last Filed: 08/03/17 11:33>
[2017-08-03] MEDS: Albuterol Sulfate 2.5 mg/3 ml Neb NEB SCH ×3 (07:44→19:50)
--- NOTE | 2017-08-03 08:36 | RAD ---
PORTABLE CHEST 1 VIEW: DATE: 08/03/17. TIME: 12:56 a.m. HISTORY: Fluid overload, possible CHF. FINDINGS/IMPRESSION: No significant interval change is seen since the exam of 08/02/17. POS: BHANU
[2017-08-03] MEDS: Amlodipine 5 MG TAB PO SCH (08:39)
[2017-08-03] MEDS: Ezetimibe 10 MG TAB PO SCH (08:39)
[2017-08-03] MEDS: Apixaban 5 MG TAB PO SCH ×2 (08:39→21:15)
[2017-08-03] MEDS: Azithromycin 250 MG TAB PO SCH (08:39)
[2017-08-03] MEDS: Ferrous Sulfate 325 MG TAB PO SCH (08:39)
[2017-08-03] MEDS ORDERED: Digoxin 0.5 MG/2 ML AMP SLOW IVP SCH ×2 (12:30→13:30)
--- NOTE | 2017-08-03 14:46 | CON ---
DATE OF CONSULTATION: 08/03/2017 HISTORY OF PRESENT ILLNESS: The patient is an 87-year-old gentleman, who presented with acute onset of weakness and has been noticed to have a rapid irregular heart rhythm. The patient has a history of coronary bypass graft surgery and chronic atrial fibrillation. The patient previously has had difficulty with rapid atrial fibrillation. He had been treated previously with a different antiarrhythmic medications. He has been on Eliquis and now in permanent atrial fibrillation. The patient presented with acute onset of severe weakness. He had difficulty getting out of bed. He denied having any chest discomfort. PAST MEDICAL HISTORY: 1. Coronary artery disease. 2. Atrial fibrillation. 3. 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 4. Hypertension. 5. Hypercholesterolemia. PAST SURGICAL HISTORY: Cholecystectomy, TURP, bowel resection, and coronary bypass graft surgery. SOCIAL HISTORY: Nonsmoker. MEDICATIONS ON ADMISSION: Iron sulfate 325 daily, Eliquis 2.5 b.i.d., amlodipine 5 daily, omeprazole 20 daily, lisinopril 20 at bedtime, Synthroid 500 mcg daily, Imdur 30 q.a.m., and aspirin 81 daily. SOCIAL HISTORY: Nonsmoker. PHYSICAL EXAMINATION: GENERAL: Elderly gentleman in mild distress with a blood pressure of 112/59. NECK: Full. LUNGS: Clear to auscultation. . Coarse breath sounds throughout both lung solomon. HEART: Irregular rate and rhythm, normal S1 and S2, 1/6 systolic murmur. ABDOMEN: Nondistended. EXTREMITIES: Showed trace edema. SKIN: Warm and dry. NEUROLOGIC: Nonfocal. VASCULAR: Radial pulses are 2+. LABORATORY DATA: White blood cell count 7.3, hemoglobin 12.8, hematocrit 40.5, and his platelets are 254. Sodium is 132, potassium 4.3, chloride 101, bicarb 17, BUN 24, creatinine is 1.6. EKG revealed atrial fibrillation with a rapid ventricular response. IMPRESSION: 1. Rapid atrial fibrillation. 2. History of coronary bypass surgery. 3. Hypertension. 4. Chronic renal insufficiency. 5. 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 This gentleman presents with rapid atrial fibrillation. Ee would recommend adding digoxin to control the patient's heart rate. The patient also was extremely weak when his blood pressure is low. We would discontinue his Norvasc and lisinopril. We can try to control the patient's heart by adjusting digoxin and diltiazem. He will start physical therapy. We will continue the patient on apixaban. We will follow this patient with you through his hospitalization. MARINA
[2017-08-03] MEDS: Aspirin 81 mg Enteric Coated Tablet PO SCH (21:14)
[2017-08-03] MEDS: Fluticasone Propionate Nasal Spray 16 gm Bottle NASAL SCH (21:14)
[2017-08-03] MEDS: Vancomycin HCl 1 GM in Premix Bag 1 BAG IVPB SCH (21:15)
[2017-08-03] MEDS: Acetaminophen 325 MG TAB PO PRN (21:18)
[2017-08-04] MEDS: Piperacillin/Tazobactam 3.375 GM in Sodium Chloride 0.9% 100 ML IVPB SCH ×5 (00:38→23:22)
[2017-08-04] MEDS: Albuterol Sulfate 2.5 mg/3 ml Neb NEB SCH ×4 (02:24→19:15)
[2017-08-04 04:37] LABS: #Eosinphils 0.1 thou/uL (0.0-0.7); #Monocytes 1.2 thou/uL (0.11-0.59); #Neutrophils 10.7 thou/uL (1.40-6.50); %Basophils 0.3 % (0.0-1.0); %Eosinophils 0.4 % (0.0-10.0); %Lymphocytes 14.4 % (21.0-51.0); %Monocytes 8.4 % (0.0-10.0); %Neutrophils 76.4 % (42.0-75.0); Hemoglobin 12.7 g/dL (14.0-18.0); Mean Corpuscular HGB CONC 33.2 g/dL (32.0-36.0); Mean Corpuscular Hemoglobin 33.8 pg (27.0-31.0); Mean Platelet Volume 8.5 fL (7.4-10.4); Platelet Count 223 thou/uL (130-400); RBC Distribution Width 12.4 % (11.5-14.5); Red Blood Cell (RBC) Count 3.76 mill/uL (4.70-6.10)
[2017-08-04 05:01] LABS: Anion Gap 15 mmol/L (10-20); BUN (Urea Nitrogen) 32 mg/dL (8.4-25.7); Calc. Creatinine Clearance 27 mL/min (70-130); Calcium 8.8 mg/dL (7.8-10.44); Carbon Dioxide 21 mmol/L (23-31); Chloride 99 mmol/L (98-107); Estimated GFR-MDRD 34; Glucose 110 mg/dL (83-110); Potassium 3.3 mmol/L (3.5-5.1); Sodium 132 mmol/L (136-145)
[2017-08-04] MEDS: Levothyroxine Sodium 50 MCG TAB PO SCH (05:43)
--- NOTE | 2017-08-04 06:16 | PDOC.FM ---
- Subjective Subjective: Patient feels much better today. He is alert and oriented times 4. He denies any more falls, dizziness, or weakness. He states his breathing is improved. He has no new chest pain, sob, n/v/d. He states his heart does not feel like it is racing at this time. No other complaints today. - Objective Vital Signs & Weight: Vital Signs (12 hours) Temp Pulse Resp BP BP Pulse Ox 08/04/17 04:00 97.8 F 97 20 114/59 L 94 L 08/04/17 02:24 95 08/04/17 00:00 97.8 F 90 18 122/59 L 93 L 08/03/17 20:00 100.7 F H 98 20 117/57 L 94 L 08/03/17 19:50 95 Weight Weight 65 kg I&O: 08/02/17 08/03/17 08/04/17 06:59 06:59 06:59 Intake Total 1140 1180 1000 Output Total 1070 375 Balance 70 805 1000 Result Diagrams: 08/04/17 03:55 08/04/17 03:55 Phys Exam - Physical Examination HEENT: moist MMs Neck: no nodes Respiratory: no wheezing, clear to auscultation bilateral no crackles present. Cardiovascular: RRR, no significant murmur Gastrointestinal: soft, non-tender, no distention, positive bowel sounds Musculoskeletal: no edema, pulses present Neurological: non-focal, normal sensation, moves all 4 limbs Lymphatic: no nodes Psychiatric: normal affect, A&O x 3 Dx/Plan (1) Atrial fibrillation with rapid ventricular response Code(s): I48.91 - UNSPECIFIED ATRIAL FIBRILLATION Status: Acute (2) BPH (benign prostatic hyperplasia) Code(s): N40.0 - BENIGN PROSTATIC HYPERPLASIA WITHOUT LOWER URINRY TRACT SYMP Status: Acute Qualifiers: Lower urinary tract symptom presence: symptoms present Lower urinary tract symptom detail: unspecified Qualified Code(s): N40.1 - Benign prostatic hyperplasia with lower urinary tract symptoms (3) CAD (coronary artery disease) Code(s): I25.10 - ATHSCL HEART DISEASE OF [place] CORONARY ARTERY W/O ANG PCTRS Status: Acute Qualifiers: Coronary Disease-Associated Artery/Lesion type: [place] artery [place] vs. transplanted heart: [place] heart Associated angina: angina presence unspecified Qualified Code(s): I25.10 - Atherosclerotic heart disease of [place] coronary artery without angina pectoris (4) Elevated troponin Code(s): R74.8 - ABNORMAL LEVELS OF OTHER SERUM ENZYMES Status: Acute (5) GERD (gastroesophageal reflux disease) Code(s): K21.9 - GASTRO-ESOPHAGEAL REFLUX DISEASE WITHOUT ESOPHAGITIS Status: Acute Qualifiers: Esophagitis presence: without esophagitis Qualified Code(s): K21.9 - Gastro -esophageal reflux disease without esophagitis (6) Hyperlipidemia Code(s): E78.5 - HYPERLIPIDEMIA, UNSPECIFIED Status: Acute Qualifiers: Hyperlipidemia type: unspecified Qualified Code(s): E78.5 - Hyperlipidemia , unspecified (7) Systemic inflammatory response syndrome, unspecified Code(s): R65.10 - SIRS OF NON-INFECTIOUS ORIGIN W/O ACUTE ORGAN DYSFUNCTION Status: Acute (8) Hypertension Code(s): I10 - ESSENTIAL (PRIMARY) HYPERTENSION Status: Acute Qualifiers: Hypertension type: essential hypertension Qualified Code(s): I10 - Essential (primary) hypertension (9) Hypothyroidism Code(s): E03.9 - HYPOTHYROIDISM, UNSPECIFIED Status: Acute Qualifiers: Hypothyroidism type: acquired Qualified Code(s): E03.9 - Hypothyroidism, unspecified (10) Hypokalemia Code(s): E87.6 - HYPOKALEMIA Status: Acute - Plan Plan: A-fib w/ RVR The patient has a longstanding history of a-fib and is treated by Dr. Ortiz at the [facility]. The patient is a poor historian and doesn't know what medications he used to be on, but does not appear to be on a rate or rhythm control med at this time. He is anticoagulated with Eliquis 2.5 mg BID. The a-fib with RVR is likely 2/2 infection. The patient was started on a Cardizem gtt in the ED. -Cardizem gtt discontinued. Started oral Diltiazem -Continue Eliquis and ASA - Rate in 80s - Cardiology consulted, Appreciate Dr. Gladys alanis. - Started Digoxin and improved SIRS 2/2 with unknown source - suspected CAP The patient had fever to 100.9 in the [facility] ED as well as leukocytosis with 19 % bands and tachycardia. The patient has had a chronic cough, but also has a possible infiltrate on CXR. Will await official read from the radiologist. S/P fluid bolus in the ED -Rocephin and Azithromycin, Zosyn -NS @ 125 -Urine Cx -Blood Cx Indeterminate Troponins Initial trop was 0.03. The patient has a h/o 4v CABG. The patient reports his last nuclear stress test was [address] Ortiz and was normal. -Continue aspirin -Cardiac enzymes trended down. -Monitor on Tele -Repeat EKG for any chest pain CKD3 The patient appears at his baseline creatinine. -avoid nephrotoxic agents HTN -Lisinopril and Amlodipine discontinued. Hypothyroidism -Continue home meds CAD s/p CABG -Continue home meds -Heart healthy diet HLD -Continue home meds GERD -Continue home meds Hypokalemia - Likely secondary to Lasix use. - Monitor BMP - Replenish as needed Disposition: Stable, will await culture results and sustained rate control.
[2017-08-04] MEDS ORDERED: Furosemide 20 MG/2 ML VIAL SLOW IVP SCH (09:00)
[2017-08-04] MEDS: Vancomycin HCl 1 GM in Premix Bag 1 BAG IVPB SCH ×2 (09:35→21:21)
[2017-08-04] MEDS: Potassium Chloride 20 MEQ TAB PO SCH (09:38)
[2017-08-04] MEDS: Apixaban 5 MG TAB PO SCH ×2 (09:39→21:21)
[2017-08-04] MEDS: Ezetimibe 10 MG TAB PO SCH (09:40)
[2017-08-04] MEDS: Digoxin 0.125 MG TAB PO SCH (09:40)
[2017-08-04] MEDS: Ferrous Sulfate 325 MG TAB PO SCH (09:45)
[2017-08-04 20:36] LABS: Vancomycin, Trough 19.4 ug/mL
[2017-08-04] MEDS: Aspirin 81 mg Enteric Coated Tablet PO SCH (21:22)
[2017-08-04] MEDS: Fluticasone Propionate Nasal Spray 16 gm Bottle NASAL SCH (21:22)
[2017-08-05] MEDS: Albuterol Sulfate 2.5 mg/3 ml Neb NEB SCH ×4 (00:37→18:57)
[2017-08-05 04:56] LABS: #Eosinphils 0.2 thou/uL (0.0-0.7); #Lymphocytes 2.1 thou/uL (1.20-3.40); #Monocytes 1.2 thou/uL (0.11-0.59); #Neutrophils 10.8 thou/uL (1.40-6.50); %Basophils 0.2 % (0.0-1.0); %Eosinophils 1.6 % (0.0-10.0); %Lymphocytes 14.4 % (21.0-51.0); %Monocytes 8.3 % (0.0-10.0); %Neutrophils 75.5 % (42.0-75.0); Hemoglobin 12.6 g/dL (14.0-18.0); Mean Corpuscular HGB CONC 33.3 g/dL (32.0-36.0); Mean Corpuscular Hemoglobin 33.8 pg (27.0-31.0); Mean Platelet Volume 8.1 fL (7.4-10.4); Platelet Count 300 thou/uL (130-400); RBC Distribution Width 12.4 % (11.5-14.5); Red Blood Cell (RBC) Count 3.73 mill/uL (4.70-6.10); White Blood Cell (WBC) Count 14.3 thou/uL (4.8-10.8)
[2017-08-05 05:12] LABS: Anion Gap 17 mmol/L (10-20); BUN (Urea Nitrogen) 34 mg/dL (8.4-25.7); Calc. Creatinine Clearance 28 mL/min (70-130); Calcium 8.6 mg/dL (7.8-10.44); Carbon Dioxide 20 mmol/L (23-31); Chloride 100 mmol/L (98-107); Estimated GFR-MDRD 37; Glucose 91 mg/dL (83-110); Potassium 3.5 mmol/L (3.5-5.1); Sodium 133 mmol/L (136-145)
[2017-08-05] MEDS: Piperacillin/Tazobactam 3.375 GM in Sodium Chloride 0.9% 100 ML IVPB SCH ×4 (05:57→23:37)
[2017-08-05] MEDS: Levothyroxine Sodium 50 MCG TAB PO SCH (05:57)
--- NOTE | 2017-08-05 06:11 | PDOC.FM ---
- Subjective Subjective: Pt doing well this morning. denies any acute events overnight. Denies any chest pain or increased SOB. Denies any fever or chills. Denies any heart palpitations. Denies any abdominal sx's at this time. Pt reports not sleeping at all overnight. Says he has been awake all night. Pt says that he got up and worked with PT yesterday and did well. - Objective MAR Reviewed: Yes Vital Signs & Weight: Vital Signs (12 hours) Temp Pulse Resp BP Pulse Ox 08/05/17 04:25 97.1 F L 90 20 134/65 93 L 08/05/17 03:06 94 L 08/05/17 00:37 12 08/04/17 23:15 98.4 F 97 117/57 L 95 08/04/17 20:00 97.3 F L 78 20 98 08/04/17 19:43 97.3 F L 78 20 109/57 L 98 08/04/17 19:15 86 16 94 L Weight Weight 67.54 kg I&O: 08/03/17 08/04/17 08/05/17 06:59 06:59 06:59 Intake Total 1180 1000 2300 Output Total 375 1550 Balance 805 1000 750 Result Diagrams: 08/05/17 03:59 08/05/17 03:59 Radiology Reviewed by me: Yes (RLL and RML pna) <Seven Mocetzuma - Last Filed: 08/05/17 07:26> - Objective Vital Signs & Weight: Vital Signs (12 hours) Temp Pulse Resp BP Pulse Ox 08/05/17 12:07 97.7 F 82 18 131/61 95 08/05/17 09:07 91 08/05/17 08:00 98.2 F 91 20 163/72 H 97 08/05/17 06:59 94 L 08/05/17 04:25 97.1 F L 90 20 134/65 93 L 08/05/17 03:06 94 L 08/05/17 00:37 12 Weight Weight 67.54 kg I&O: 08/04/17 08/05/17 08/06/17 06:59 06:59 06:59 Intake Total 1000 2300 240 Output Total 1550 Balance 1000 750 240 Result Diagrams: 08/05/17 03:59 03/17/18 03:59 <Tushar Cortez - Last Filed: 08/05/17 12:21> Phys Exam - Physical Examination Constitutional: NAD HEENT: PERRLA, moist MMs Neck: no nodes, no JVD, supple, full ROM rales and decreased breath movement in R lung Cardiovascular: no significant murmur, no rub Irregularly regular, heart rate normal Gastrointestinal: soft, non-tender, no distention Musculoskeletal: no edema, pulses present Neurological: non-focal, normal sensation, moves all 4 limbs Lymphatic: no nodes Psychiatric: normal affect, A&O x 3 Skin: no rash, cap refill <2 seconds <Seven Moctezuma - Last Filed: 08/05/17 07:26> Dx/Plan (1) Atrial fibrillation with rapid ventricular response Code(s): I48.91 - UNSPECIFIED ATRIAL FIBRILLATION Status: Acute (2) Community acquired pneumonia Code(s): J18.9 - PNEUMONIA, UNSPECIFIED ORGANISM Status: Acute (3) CAD (coronary artery disease) Code(s): I25.10 - ATHSCL HEART DISEASE OF [place] CORONARY ARTERY W/O ANG PCTRS Status: Acute QualifierTitle: Coronary Disease-Associated Artery/Lesion type: [place] artery [place] vs. transplanted heart: [place] heart Associated angina: angina presence unspecified Qualified Code(s): I25.10 - Atherosclerotic heart disease of [place] coronary artery without angina pectoris (4) GERD (gastroesophageal reflux disease) Code(s): K21.9 - GASTRO-ESOPHAGEAL REFLUX DISEASE WITHOUT ESOPHAGITIS Status: Acute QualifierTitle: Esophagitis presence: without esophagitis Qualified Code( s): K21.9 - Gastro-esophageal reflux disease without esophagitis (5) Hyperlipidemia Code(s): E78.5 - HYPERLIPIDEMIA, UNSPECIFIED Status: Acute QualifierTitle: Hyperlipidemia type: unspecified Qualified Code(s): E78.5 - Hyperlipidemia, unspecified (6) Hypokalemia Code(s): E87.6 - HYPOKALEMIA Status: Acute (7) Atrial fibrillation Code(s): I48.91 - UNSPECIFIED ATRIAL FIBRILLATION Status: Active (8) Hypertension Code(s): I10 - ESSENTIAL (PRIMARY) HYPERTENSION Status: Acute QualifierTitle: Hypertension type: essential hypertension Qualified Code( s): I10 - Essential (primary) hypertension (9) Hypothyroidism Code(s): E03.9 - HYPOTHYROIDISM, UNSPECIFIED Status: Acute QualifierTitle: Hypothyroidism type: acquired Qualified Code(s): E03.9 - Hypothyroidism, unspecified - Plan Plan: A-fib w/ RVR The patient has a longstanding history of a-fib and is treated by Dr. Ortiz at the [facility]. The patient is a poor historian and doesn't know what medications he used to be on, but does not appear to be on a rate or rhythm control med at this time. He is anticoagulated with Eliquis 2.5 mg BID. The a-fib with RVR is likely 2/2 infection. The patient was started on a Cardizem gtt in the ED. -Cardizem gtt discontinued. Started oral Diltiazem -Continue Eliquis and ASA - Rate in 80s - Cardiology consulted, Appreciate Dr. Graham recs. - Started Digoxin and improved SIRS 2/2 with CAP The patient had fever to 100.9 in the [facility] ED as well as leukocytosis with 19 % bands and tachycardia. The patient has had a chronic cough, but also has a possible infiltrate on CXR. Read shows concern for Pneumonia and some CHF exacerbation. -Received Rocephin and Azithromycin early in course -Now using Zosyn and Vancomycin. -Requring 2 L O2. Continue to wean. -Urine Cx- NGTD -Blood Cx - NGTD Indeterminate Troponins Initial trop was 0.03. The patient has a h/o 4v CABG. The patient reports his last nuclear stress test was [address] Ortiz and was normal. -Continue aspirin -Cardiac enzymes trended down. -Monitor on Tele -Repeat EKG for any chest pain -Cardiology Consulted-Dr. Graham. Will follow recs. CKD3 The patient appears at his baseline creatinine. -avoid nephrotoxic agents HTN -Lisinopril and Amlodipine discontinued. BP stable. Continue to monitor and tx Hypothyroidism -Continue home meds CAD s/p CABG -Continue home meds -Heart healthy diet HLD -Continue home meds GERD -Continue home meds Hypokalemia - Likely secondary to Lasix use. - Monitor BMP - Replenish as needed <Seven Moctezuma - Last Filed: 08/05/17 07:26> (1) Atrial fibrillation with rapid ventricular response Code(s): I48.91 - UNSPECIFIED ATRIAL FIBRILLATION Status: Acute (2) Systemic inflammatory response syndrome, unspecified Code(s): R65.10 - SIRS OF NON-INFECTIOUS ORIGIN W/O ACUTE ORGAN DYSFUNCTION Status: Acute (3) Elevated troponin Code(s): R74.8 - ABNORMAL LEVELS OF OTHER SERUM ENZYMES Status: Acute (4) GERD (gastroesophageal reflux disease) Code(s): K21.9 - GASTRO-ESOPHAGEAL REFLUX DISEASE WITHOUT ESOPHAGITIS Status: Acute Qualifiers: Esophagitis presence: without esophagitis Qualified Code(s): K21.9 - Gastro -esophageal reflux disease without esophagitis (5) Hyperlipidemia Code(s): E78.5 - HYPERLIPIDEMIA, UNSPECIFIED Status: Acute Qualifiers: Hyperlipidemia type: unspecified Qualified Code(s): E78.5 - Hyperlipidemia , unspecified (6) CAD (coronary artery disease) Code(s): I25.10 - ATHSCL HEART DISEASE OF [place] CORONARY ARTERY W/O ANG PCTRS Status: Acute Qualifiers: Coronary Disease-Associated Artery/Lesion type: [place] artery [place] vs. transplanted heart: [place] heart Associated angina: angina presence unspecified Qualified Code(s): I25.10 - Atherosclerotic heart disease of [place] coronary artery without angina pectoris (7) Hypertension Code(s): I10 - ESSENTIAL (PRIMARY) HYPERTENSION Status: Acute Qualifiers: Hypertension type: essential hypertension Qualified Code(s): I10 - Essential (primary) hypertension (8) Hypothyroidism Code(s): E03.9 - HYPOTHYROIDISM, UNSPECIFIED Status: Acute Qualifiers: Hypothyroidism type: acquired Qualified Code(s): E03.9 - Hypothyroidism, unspecified (9) BPH (benign prostatic hyperplasia) Code(s): N40.0 - BENIGN PROSTATIC HYPERPLASIA WITHOUT LOWER URINRY TRACT SYMP Status: Acute Qualifiers: Lower urinary tract symptom presence: symptoms present Lower urinary tract symptom detail: unspecified Qualified Code(s): N40.1 - Benign prostatic hyperplasia with lower urinary tract symptoms <Tushar Cortez - Last Filed: 08/05/17 12:21> Attending Addendum - Attending Addendum Date/Time: 08/05/17 1220 I personally evaluated the patient and discussed the management with Dr. Moctezuma I agree with the History, Examination, Assessment and Plan documented above with any addition or exceptions noted below. will check f/u digoxin level. <Tushar Cortez - Last Filed: 08/05/17 12:21>
[2017-08-05] MEDS: Apixaban 5 MG TAB PO SCH ×2 (09:06→20:47)
[2017-08-05] MEDS: Potassium Chloride 20 MEQ TAB PO SCH (09:06)
[2017-08-05] MEDS: Vancomycin HCl 1 GM in Premix Bag 1 BAG IVPB SCH (09:07)
[2017-08-05] MEDS: Digoxin 0.125 MG TAB PO SCH (09:07)
[2017-08-05] MEDS: Ferrous Sulfate 325 MG TAB PO SCH (09:07)
[2017-08-05] MEDS: Ezetimibe 10 MG TAB PO SCH (09:07)
[2017-08-05 17:16] LABS: Digoxin 1.49 ng/mL (0.8-2.0)
[2017-08-05 17:17] LABS: Actual Bicarbonate (HCO3a) 23.6 mEq/L (22-26); Base Excess (BEa) 1.2 mEq/L (0 (+/-) 2.5); CO2 Tension 30.7 mmHg (35.0-45.0); Hematocrit-ABG 39.2 % (42.0-52.0); Hemoglobin (Hb) 11.8 g/dL (14.0-18.0); O2 Tension (PaO2) 87.4 mmHg (80.0-100.0)
[2017-08-05 17:18] LABS: ALV-art Gradient 73.865 (0-20); Calcium, Ionized 1.2 mmol/L (1.12-1.30); Puncture Site RRA
--- NOTE | 2017-08-05 18:31 | PDOC.EVN ---
Event Note - Event Note Event Note: Nurse pulled me aside while on 2N and told me that patient was having some acute confusion, confirmed by son. She reported that the patient napped without O2 and when she went in his O2 sat was 86% on RA, improved with 1-2L of O2 NC. When I went and evaluated patient, he is A&Ox2, baseline A&Ox3. Patient is in no acute distress. VS at the time of my evaluation are wnl with O2 sat of 98% on 1L. On exam there were crackles in the RLL, no wheezing. Normal neuro exam. Holding a conversation well. Not somnolent of any sort, just confused. ABG, CXR, D-dimer, and digoxin level ordered. Consider delirium vs. worsening PNA infection vs Digoxin toxicity vs. PE. Will monitor closely with door open.
--- NOTE | 2017-08-05 18:52 | RAD ---
PORTABLE UPRIGHT FRONTAL CHEST RADIOGRAPH 08/05/17 COMPARISON: 08/01/17. HISTORY: Pneumonia. FINDINGS: There is worsening aeration in the right perihilar region and the inferior aspect of the right upper lobe with associated air space disease, worsened. Midline sternotomy wires are present. Diffuse incre ased interstitial densities noted with pulmonary hyperinflation. No pneumothorax or large volume pleu ral effusion. IMPRESSION: Developing air space disease in right perihilar region/right upper lobe suggests infectious pneumonit is/pneumonia or aspiration. Followup imaging to resolution advised. POS: [facility]
[2017-08-05 20:39] LABS: Vancomycin, Trough 25.5 ug/mL
[2017-08-05] MEDS: Acetaminophen 325 MG TAB PO PRN (20:46)
[2017-08-05] MEDS: Fluticasone Propionate Nasal Spray 16 gm Bottle NASAL SCH (20:46)
[2017-08-05] MEDS: Aspirin 81 mg Enteric Coated Tablet PO SCH (20:47)
[2017-08-06] MEDS: Albuterol Sulfate 2.5 mg/3 ml Neb NEB SCH ×4 (01:14→18:51)
[2017-08-06 04:54] LABS: #Basophils 0.1 thou/uL (0.0-0.2); #Eosinphils 0.3 thou/uL (0.0-0.7); #Lymphocytes 1.9 thou/uL (1.20-3.40); #Monocytes 1.2 thou/uL (0.11-0.59); #Neutrophils 8.2 thou/uL (1.40-6.50); %Basophils 0.5 % (0.0-1.0); %Eosinophils 2.8 % (0.0-10.0); %Lymphocytes 16.1 % (21.0-51.0); %Neutrophils 70.7 % (42.0-75.0); Hemoglobin 11.6 g/dL (14.0-18.0); Mean Corpuscular HGB CONC 32.6 g/dL (32.0-36.0); Mean Corpuscular Hemoglobin 33.4 pg (27.0-31.0); Mean Platelet Volume 7.7 fL (7.4-10.4); Platelet Count 308 thou/uL (130-400); RBC Distribution Width 12.4 % (11.5-14.5); Red Blood Cell (RBC) Count 3.48 mill/uL (4.70-6.10); White Blood Cell (WBC) Count 11.6 thou/uL (4.8-10.8)
[2017-08-06 05:12] LABS: Anion Gap 14 mmol/L (10-20); BUN (Urea Nitrogen) 27 mg/dL (8.4-25.7); Calc. Creatinine Clearance 33 mL/min (70-130); Calcium 8.7 mg/dL (7.8-10.44); Carbon Dioxide 23 mmol/L (23-31); Chloride 101 mmol/L (98-107); Estimated GFR-MDRD 46; Glucose 92 mg/dL (83-110); Potassium 3.6 mmol/L (3.5-5.1); Sodium 134 mmol/L (136-145)
[2017-08-06] MEDS: Piperacillin/Tazobactam 3.375 GM in Sodium Chloride 0.9% 100 ML IVPB SCH ×4 (05:58→23:16)
[2017-08-06] MEDS: Levothyroxine Sodium 50 MCG TAB PO SCH (05:59)
--- NOTE | 2017-08-06 07:16 | PDOC.FM ---
- Subjective Subjective: pt reports doing well this morning. A&Ox2. Knew name and president. Didn't know date or place. Pt likely had a little delirum yesterday as he did not sleep at all yesterday. Was reported talking to himself and somewhat confused. Talking with him this morning he says that his breathing is doing much better. Denies any SOB. Denies any fever or chills. reports being tired. Denies any chest pain. No other concerns at this time. - Objective MAR Reviewed: Yes Vital Signs & Weight: Vital Signs (12 hours) Temp Pulse Resp BP Pulse Ox 08/06/17 03:37 97.6 F 83 18 141/63 H 94 L 08/06/17 01:14 92 L 08/05/17 23:49 97.8 F 76 18 132/63 97 08/05/17 20:00 97.4 F L 85 20 94 L 08/05/17 19:45 97.4 F L 85 20 128/60 94 L Weight Weight 66.633 kg I&O: 08/05/17 08/06/17 08/07/17 06:59 06:59 06:59 Intake Total 2300 1720 Output Total 1550 1320 Balance 750 400 Result Diagrams: 08/06/17 03:51 08/06/17 03:51 Radiology Reviewed by me: Yes Radiology: CXR 08/05: Developing air space dz in R. perihilar region/right upper lobe suggests infectious pneumonitis/pneumonia or aspiration. F/u imaging advised <Seven Moctezuma - Last Filed: 08/06/17 07:13> - Objective Vital Signs & Weight: Vital Signs (12 hours) Temp Pulse Resp BP Pulse Ox 08/06/17 11:42 97.4 F L 81 18 147/67 H 94 L 08/06/17 08:37 91 08/06/17 07:50 99.6 F 91 16 95 08/06/17 07:49 99.6 F 91 16 156/71 H 95 08/06/17 07:35 96 08/06/17 07:32 86 20 08/06/17 03:37 97.6 F 83 18 141/63 H 94 L 08/06/17 01:14 92 L 08/05/17 23:49 97.8 F 76 18 132/63 97 Weight Weight 66.633 kg I&O: 08/05/17 08/06/17 08/07/17 06:59 06:59 06:59 Intake Total 2300 1720 360 Output Total 1550 1320 Balance 750 400 360 Result Diagrams: 08/06/17 03:51 08/06/17 03:51 <Tushar Cortez - Last Filed: 08/06/17 11:50> Phys Exam - Physical Examination Constitutional: NAD HEENT: PERRLA, moist MMs Neck: no nodes, no JVD, supple, full ROM Decreased breath sounds on the r. lung. No crackles or wheezes noted. Cardiovascular: no significant murmur, no rub Irregularly irregular, normal rate Gastrointestinal: soft, non-tender, no distention, positive bowel sounds Musculoskeletal: no edema, pulses present Neurological: non-focal, moves all 4 limbs Lymphatic: no nodes Psychiatric: normal affect Deviation from normal: A&Ox2 Skin: no rash, cap refill <2 seconds <Seven Moctezuma - Last Filed: 08/06/17 07:13> Dx/Plan (1) Atrial fibrillation with rapid ventricular response Code(s): I48.91 - UNSPECIFIED ATRIAL FIBRILLATION Status: Acute (2) Community acquired pneumonia Code(s): J18.9 - PNEUMONIA, UNSPECIFIED ORGANISM Status: Acute (3) CAD (coronary artery disease) Code(s): I25.10 - ATHSCL HEART DISEASE OF [place] CORONARY ARTERY W/O ANG PCTRS Status: Acute QualifierTitle: Coronary Disease-Associated Artery/Lesion type: [place] artery [place] vs. transplanted heart: [place] heart Associated angina: angina presence unspecified Qualified Code(s): I25.10 - Atherosclerotic heart disease of [place] coronary artery without angina pectoris (4) GERD (gastroesophageal reflux disease) Code(s): K21.9 - GASTRO-ESOPHAGEAL REFLUX DISEASE WITHOUT ESOPHAGITIS Status: Acute QualifierTitle: Esophagitis presence: without esophagitis Qualified Code( s): K21.9 - Gastro-esophageal reflux disease without esophagitis (5) Hyperlipidemia Code(s): E78.5 - HYPERLIPIDEMIA, UNSPECIFIED Status: Acute QualifierTitle: Hyperlipidemia type: unspecified Qualified Code(s): E78.5 - Hyperlipidemia, unspecified (6) Hypokalemia Code(s): E87.6 - HYPOKALEMIA Status: Acute (7) Atrial fibrillation Code(s): I48.91 - UNSPECIFIED ATRIAL FIBRILLATION Status: Active (8) Hypertension Code(s): I10 - ESSENTIAL (PRIMARY) HYPERTENSION Status: Acute QualifierTitle: Hypertension type: essential hypertension Qualified Code( s): I10 - Essential (primary) hypertension (9) Hypothyroidism Code(s): E03.9 - HYPOTHYROIDISM, UNSPECIFIED Status: Acute QualifierTitle: Hypothyroidism type: acquired Qualified Code(s): E03.9 - Hypothyroidism, unspecified - Plan Plan: A-fib w/ RVR The patient has a longstanding history of a-fib and is treated by Dr. Ortiz at the [facility]. The patient is a poor historian and doesn't know what medications he used to be on, but does not appear to be on a rate or rhythm control med at this time. He is anticoagulated with Eliquis 2.5 mg BID. The a-fib with RVR is likely 2/2 infection. The patient was started on a Cardizem gtt in the ED. -Cardizem gtt discontinued. Started oral Diltiazem -Continue Eliquis and ASA - Rate in 80s - Cardiology consulted, Appreciate Dr. Graham recs. - Started Digoxin and improved. Digoxin level normal yesterday. Will continue to follow SIRS 2/2 with CAP The patient had fever to 100.9 in the [facility] as well as leukocytosis with 19 % bands and tachycardia. The patient has had a chronic cough, but also has a possible infiltrate on CXR. Read shows concern for Pneumonia and some CHF exacerbation. -Received Rocephin and Azithromycin early in course -Now using Zosyn and Vancomycin. -Repeat Cxray 07/08 shows PNA concern for aspiration. Covering with Zosyn at this time. Pt improving on IV abx at this time. Will continue for now. -Requring 2 L O2. Continue to wean. -Urine Cx- NGTD -Blood Cx - NGTD Indeterminate Troponins Initial trop was 0.03. The patient has a h/o 4v CABG. The patient reports his last nuclear stress test was [address] Ortiz and was normal. -Continue aspirin -Cardiac enzymes trended down. -Monitor on Tele -Repeat EKG for any chest pain -Cardiology Consulted-Dr. Graham. Will follow recs. CKD3 The patient appears at his baseline creatinine. -avoid nephrotoxic agents HTN -Lisinopril and Amlodipine discontinued. BP stable. Continue to monitor and tx Hypothyroidism -Continue home meds CAD s/p CABG -Continue home meds -Heart healthy diet HLD -Continue home meds GERD -Continue home meds Hypokalemia - Likely secondary to Lasix use. - Monitor BMP - Replenish as needed <Seven Moctezuma - Last Filed: 08/06/17 07:13> (1) Atrial fibrillation with rapid ventricular response Code(s): I48.91 - UNSPECIFIED ATRIAL FIBRILLATION Status: Acute (2) Systemic inflammatory response syndrome, unspecified Code(s): R65.10 - SIRS OF NON-INFECTIOUS ORIGIN W/O ACUTE ORGAN DYSFUNCTION Status: Acute (3) Elevated troponin Code(s): R74.8 - ABNORMAL LEVELS OF OTHER SERUM ENZYMES Status: Acute (4) GERD (gastroesophageal reflux disease) Code(s): K21.9 - GASTRO-ESOPHAGEAL REFLUX DISEASE WITHOUT ESOPHAGITIS Status: Acute Qualifiers: Esophagitis presence: without esophagitis Qualified Code(s): K21.9 - Gastro -esophageal reflux disease without esophagitis (5) Hyperlipidemia Code(s): E78.5 - HYPERLIPIDEMIA, UNSPECIFIED Status: Acute Qualifiers: Hyperlipidemia type: unspecified Qualified Code(s): E78.5 - Hyperlipidemia , unspecified (6) CAD (coronary artery disease) Code(s): I25.10 - ATHSCL HEART DISEASE OF [place] CORONARY ARTERY W/O ANG PCTRS Status: Acute Qualifiers: Coronary Disease-Associated Artery/Lesion type: [place] artery [place] vs. transplanted heart: [place] heart Associated angina: angina presence unspecified Qualified Code(s): I25.10 - Atherosclerotic heart disease of [place] coronary artery without angina pectoris (7) Hypertension Code(s): I10 - ESSENTIAL (PRIMARY) HYPERTENSION Status: Acute Qualifiers: Hypertension type: essential hypertension Qualified Code(s): I10 - Essential (primary) hypertension (8) Hypothyroidism Code(s): E03.9 - HYPOTHYROIDISM, UNSPECIFIED Status: Acute Qualifiers: Hypothyroidism type: acquired Qualified Code(s): E03.9 - Hypothyroidism, unspecified (9) BPH (benign prostatic hyperplasia) Code(s): N40.0 - BENIGN PROSTATIC HYPERPLASIA WITHOUT LOWER URINRY TRACT SYMP Status: Acute Qualifiers: Lower urinary tract symptom presence: symptoms present Lower urinary tract symptom detail: unspecified Qualified Code(s): N40.1 - Benign prostatic hyperplasia with lower urinary tract symptoms <Tushar Cortez - Last Filed: 08/06/17 11:50> Attending Addendum - Attending Addendum Date/Time: 08/06/17 1140 I personally evaluated the patient and discussed the management with Dr. Moctezuma I agree with the History, Examination, Assessment and Plan documented above with any addition or exceptions noted below.patient for V/Q scan today digoxin level noted 1.2 rate (relatively high) discuss optimal levels and dosage adjustment prn , mental status waxes and wanes better if frequently re-oriented limit and reduce night time stimulation. <Tushar Cortez - Last Filed: 08/06/17 11:50>
[2017-08-06] MEDS: Digoxin 0.125 MG TAB PO SCH (08:37)
[2017-08-06] MEDS: Ezetimibe 10 MG TAB PO SCH (08:37)
[2017-08-06] MEDS: Potassium Chloride 20 MEQ TAB PO SCH (08:38)
[2017-08-06] MEDS: Apixaban 5 MG TAB PO SCH ×2 (08:38→21:00)
[2017-08-06] MEDS: Ferrous Sulfate 325 MG TAB PO SCH (08:38)
--- NOTE | 2017-08-06 12:17 | PDOC.EVN ---
Event Note - Event Note Event Note: Was called to a [place] on Mr. Gibbons as he was found face down on the floor. Pt had unwitnessed fall. Reports he did not pass out or lose consciousness. Says he slowly went to the ground after getting up to try and go to the bathroom. Pt is only A&Ox1 so hard to say if story is reliable. Did not note any bruising or lacerations on face or body. No sign of acute trauma. Pt did not have any focal neuro defecits on exam. Pt denies any pain. Due to being found facedown and not being witnessed we will get a CT scan of his head. Getting CT head due to fall and being on eliquis. <Seven Moctezuma - Last Filed: 08/06/17 12:13> Attending Addendum - Attending Addendum Date/Time: 08/06/17 1655 I personally evaluated the patient and discussed the management with Dr. Moctezuma I agree with the History, Examination, Assessment and Plan documented above with any addition or exceptions noted below.Patient with underlying dementia. Patient would benefit from continued rehabilitation at time of discharge <Tushar Cortez - Last Filed: 08/06/17 17:19>
--- NOTE | 2017-08-06 14:17 | NM ---
VENTILATION PERFUSION LUNG SCAN: HISTORY: An 87-year-old male with a history elevated D-dimer and confusion. Followup pneumonia. COMPARISON: 08/05/17 chest x-ray. FINDINGS: VENTILATION STUDY: The patient inhaled approximately 20 mCi of Xenon 133 MAA. There is some minimal decreased activity in the right upper chest. There is some mild right mid and lower lung zone trapping. PERFUSION LUNG SCAN: The patient was injected with 6.2 mCi Technetium 99m-MAA intravenously. There is some abnormal decre ased activity in the region of the right upper chest and less so in the left upper chest. This area of abnormal decreased activity corresponds to parenchymal changes on the chest x-ray. IMPRESSION: Abnormal ventilation and perfusion lung scan with essentially matched defects in the upper lobe on th e right, evidence for a low probability of acute PE. POS: [facility]
--- NOTE | 2017-08-06 15:00 | CT ---
BRAIN CT WITHOUT IV CONTRAST: HISTORY: An 87-year-old male with altered mental status. FINDINGS: There is no focal mass or midline shift. No intra- or extraaxial hemorrhage. There are marked atrop hy and chronic white matter ischemic changes. There is some partial opacification of both mastoids. IMPRESSION: Atrophy and chronic white matter ischemic changes. Partial opacification of both mastoids. No mass or bleed. POS: [facility]
[2017-08-06 15:18] LABS: Digoxin 1.46 ng/mL (0.8-2.0)
[2017-08-06] MEDS: Fluticasone Propionate Nasal Spray 16 gm Bottle NASAL SCH (20:59)
[2017-08-06] MEDS ORDERED: Vancomycin HCl 750 MG in Sodium Chloride 0.9% 250 ML 250 ML IVPB SCH (21:00)
[2017-08-06] MEDS: Aspirin 81 mg Enteric Coated Tablet PO SCH (21:00)
[2017-08-07] MEDS: Albuterol Sulfate 2.5 mg/3 ml Neb NEB SCH ×3 (00:51→13:31)
[2017-08-07 04:35] LABS: #Basophils 0.1 thou/uL (0.0-0.2); #Eosinphils 0.3 thou/uL (0.0-0.7); #Lymphocytes 1.8 thou/uL (1.20-3.40); #Monocytes 1.2 thou/uL (0.11-0.59); %Basophils 0.5 % (0.0-1.0); %Lymphocytes 12.7 % (21.0-51.0); %Monocytes 8.5 % (0.0-10.0); %Neutrophils 76.4 % (42.0-75.0); Hemoglobin 11.7 g/dL (14.0-18.0); Mean Corpuscular HGB CONC 32.6 g/dL (32.0-36.0); Mean Corpuscular Hemoglobin 33.2 pg (27.0-31.0); Mean Platelet Volume 7.6 fL (7.4-10.4); Platelet Count 400 thou/uL (130-400); RBC Distribution Width 12.5 % (11.5-14.5); Red Blood Cell (RBC) Count 3.52 mill/uL (4.70-6.10); White Blood Cell (WBC) Count 14.5 thou/uL (4.8-10.8)
[2017-08-07 04:52] LABS: Anion Gap 14 mmol/L (10-20); BUN (Urea Nitrogen) 29 mg/dL (8.4-25.7); Calc. Creatinine Clearance 30 mL/min (70-130); Calcium 8.6 mg/dL (7.8-10.44); Carbon Dioxide 20 mmol/L (23-31); Chloride 103 mmol/L (98-107); Estimated GFR-MDRD 40; Glucose 92 mg/dL (83-110); Potassium 3.7 mmol/L (3.5-5.1); Sodium 133 mmol/L (136-145)
[2017-08-07] MEDS: Piperacillin/Tazobactam 3.375 GM in Sodium Chloride 0.9% 100 ML IVPB SCH (05:43)
[2017-08-07] MEDS: Levothyroxine Sodium 50 MCG TAB PO SCH (05:44)
--- NOTE | 2017-08-07 05:51 | PDOC.FM ---
- Subjective Subjective: This morning patient is A&Ox2, he knows name, year, and president but not where he is at. He denies any pain and is eating breakfast during my exam. He states he slept well without any issues overnight. He denies chest pain, dizziness, or palpitations. He denies cough or shortness of breath. - Objective Vital Signs & Weight: Vital Signs (12 hours) Temp Pulse Resp BP Pulse Ox 08/07/17 04:22 98.5 F 85 20 139/66 95 08/07/17 00:51 68 14 95 08/07/17 00:00 98.9 F 83 18 155/72 H 95 08/06/17 20:00 99.2 F 81 18 95 08/06/17 18:51 91 18 96 Weight Weight 66.451 kg I&O: 08/05/17 08/06/17 08/07/17 06:59 06:59 06:59 Intake Total 2300 1720 2040 Output Total 1550 1320 1020 Balance 416 322 0350 Result Diagrams: 08/07/17 03:53 08/07/17 03:53 Phys Exam - Physical Examination Constitutional: NAD HEENT: PERRLA, moist MMs Neck: no nodes, full ROM Respiratory: no wheezing congestion on R upper lobe Cardiovascular: RRR, no significant murmur Gastrointestinal: soft, non-tender, no distention, positive bowel sounds Musculoskeletal: no edema, pulses present Neurological: non-focal, moves all 4 limbs Psychiatric: normal affect Skin: no rash, normal turgor, cap refill <2 seconds Dx/Plan (1) Atrial fibrillation with rapid ventricular response Code(s): I48.91 - UNSPECIFIED ATRIAL FIBRILLATION Status: Acute (2) CAD (coronary artery disease) Code(s): I25.10 - ATHSCL HEART DISEASE OF [place] CORONARY ARTERY W/O ANG PCTRS Status: Acute Qualifiers: Coronary Disease-Associated Artery/Lesion type: [place] artery [place] vs. transplanted heart: [place] heart Associated angina: angina presence unspecified Qualified Code(s): I25.10 - Atherosclerotic heart disease of [place] coronary artery without angina pectoris (3) Elevated troponin Code(s): R74.8 - ABNORMAL LEVELS OF OTHER SERUM ENZYMES Status: Acute (4) GERD (gastroesophageal reflux disease) Code(s): K21.9 - GASTRO-ESOPHAGEAL REFLUX DISEASE WITHOUT ESOPHAGITIS Status: Acute Qualifiers: Esophagitis presence: without esophagitis Qualified Code(s): K21.9 - Gastro -esophageal reflux disease without esophagitis (5) Hyperlipidemia Code(s): E78.5 - HYPERLIPIDEMIA, UNSPECIFIED Status: Acute Qualifiers: Hyperlipidemia type: unspecified Qualified Code(s): E78.5 - Hyperlipidemia , unspecified (6) Hypokalemia Code(s): E87.6 - HYPOKALEMIA Status: Acute (7) Anemia due to blood loss Code(s): D50.0 - IRON DEFICIENCY ANEMIA SECONDARY TO BLOOD LOSS (CHRONIC) Status: Active (8) Atrial fibrillation Code(s): I48.91 - UNSPECIFIED ATRIAL FIBRILLATION Status: Active (9) Chest pain Code(s): R07.9 - CHEST PAIN, UNSPECIFIED Status: Acute (10) Hypertension Code(s): I10 - ESSENTIAL (PRIMARY) HYPERTENSION Status: Acute Qualifiers: Hypertension type: essential hypertension Qualified Code(s): I10 - Essential (primary) hypertension (11) Hypothyroidism Code(s): E03.9 - HYPOTHYROIDISM, UNSPECIFIED Status: Acute Qualifiers: Hypothyroidism type: acquired Qualified Code(s): E03.9 - Hypothyroidism, unspecified - Plan Plan: A-fib w/ RVR The patient has a longstanding history of a-fib and is treated by Dr. Ortiz at the [facility]. The patient is a poor historian and doesn't know what medications he used to be on, but does not appear to be on a rate or rhythm control med at this time. He is anticoagulated with Eliquis 2.5 mg BID. T -Cardizem gtt discontinued. Started oral Diltiazem -Continue Eliquis and ASA - Rate in 80s - Cardiology consulted, Appreciate Dr. Graham recdimas. - Started Digoxin and improved. Digoxin level normal today. Will continue to follow SIRS 2/2 with suspected aspiration PNA The patient had fever to 100.9 in the [facility] ED as well as leukocytosis with 19 % bands and tachycardia. The patient has had a chronic cough, but also has a possible infiltrate on CXR. Read shows concern for Pneumonia and some CHF exacerbation. -Received Rocephin and Azithromycin early in course -fevered on 08/03, started on zosyn/vanc on 08/06- - started on augmentin today to cover aspiration pneumonia -Repeat Cxray 07/08 shows PNA concern for aspiration. -Requring 2 L O2. Continue to wean. -Urine Cx- NGTD -Blood Cx - NGTD - consulted ST for barium swallow 08/07 Delirium - patient had AMS on and off last 2 days - PNA vs Dig vs PE vs delirium considered - afebrile, dig normal, v/q low likelihood PE - patient's circadian rhythm is off - likely delirium, frequent re-orientation, fall precautions Indeterminate Troponins Initial trop was 0.03. The patient has a h/o 4v CABG. The patient reports his last nuclear stress test was [address] Ortiz and was normal. -Continue aspirin -Cardiac enzymes trended down. -Monitor on Tele -Repeat EKG for any chest pain -Cardiology Consulted-Dr. Graham. Will follow recs. CKD3 The patient appears at his baseline creatinine. -avoid nephrotoxic agents HTN -Lisinopril and Amlodipine discontinued. BP stable. Continue to monitor and tx Hypothyroidism -Continue home meds CAD s/p CABG -Continue home meds -Heart healthy diet HLD -Continue home meds GERD -Continue home meds Hypokalemia - Likely secondary to Lasix use. - Monitor BMP - Replenish as needed Dispo: awaiting SNF placement, consider [facility], needs ST eval and barium swallow today
[2017-08-07 06:12] LABS: Digoxin 1.17 ng/mL (0.8-2.0)
[2017-08-07 08:07] VITALS: TEMP 96.8
[2017-08-07] MEDS ORDERED: Amoxicillin/Potassium Clav 875 MG TAB PO SCH (09:00)
[2017-08-07] MEDS: Ferrous Sulfate 325 MG TAB PO SCH (10:23)
[2017-08-07] MEDS: Digoxin 0.125 MG TAB PO SCH (10:23)
[2017-08-07] MEDS: Apixaban 5 MG TAB PO SCH (10:23)
[2017-08-07] MEDS: Potassium Chloride 20 MEQ TAB PO SCH (10:23)
[2017-08-07] MEDS: Ezetimibe 10 MG TAB PO SCH (10:23)
[2017-08-07] MEDS ORDERED: Potassium Chloride 20 MEQ TAB PO SCH (12:45)
--- NOTE | 2017-08-07 13:38 | ADD-PRG ---
DATE OF SERVICE: 08/07/2017 This is an addendum to the note of Dr. Barrie Finn. Mr. Gibbons was admitted with atrial fibrillation and RVR. He is currently on diltiazem and digoxin wit h controlled ventricular response. Within the last several days, he developed an aspiration pneumoni a which is being successfully treated with antibiotics. We are currently awaiting placement in antic ipation of discharge. Clinically, he is much improved. No distress. At this time he is somewhat co nfused, which seems to be his chronic state, but otherwise in no distress with normal vital signs.
[2017-08-07 13:45] VITALS: BP 146/67
--- NOTE | 2017-08-07 16:26 | RAD ---
MODIFIED BARIUM SWALLOW: DATE: 08/07/17. HISTORY: Patient with dysphagia, unspecified. Feeding difficulties. Pneumonia. FLUOROSCOPY: Total fluoroscopy time is 2.2 minutes with total dose of 6.32 mGy. FINDINGS: This examination was performed in conjunction with speech pathology. Varying consistencies of barium were administered during the exam. The patient demonstrates delayed formation of bolus into the pos terior pharynx with premature spill of contrast into the vallecula and piriform sinuses with all cons istencies. The patient demonstrates several episodes of penetration with thin liquid barium with que stionable single episode of trace aspiration. Contrast did clear the vallecula and piriform sinuses with swallowing. IMPRESSION: Several episodes of penetration with thin liquid barium with questionable episode of trace aspiration of thin liquid barium. POS: [facility]
--- NOTE | 2017-08-07 17:39 | DIS-2 ---
DATE OF ADMISSION: 08/01/2017 DATE OF DISCHARGE: 08/07/2017 RESIDENT: Dr. Barrie Finn. ADMITTING ATTENDING: Dr. Tushar Cortez. DISCHARGE ATTENDING: Dr. Macho Victor. CONSULTATIONS: Cardiology. PROCEDURES: Modified barium swallow. PRIMARY DIAGNOSIS: Atrial fibrillation with rapid ventricular response. SECONDARY DIAGNOSES: Aspiration pneumonia, delirium, elevated troponins, chronic kidney disease stage 3, hypertension, hypothyroidism, status post coronary artery bypass graft, hyperlipidemia, gastroesophageal reflux disease, hypokalemia. DISCHARGE MEDICATIONS: Eliquis 2.5 mg p.o. b.i.d., aspirin 81 mg nightly, digoxin 0.125 mg daily, diltiazem 180 mg b.i.d., Zetia 10 mg daily, ferrous sulfate 325 mg daily, Imdur 30 mg daily, Synthroid 50 mcg daily, magnesium 64 mg p.o. b.i.d., potassium 20 mEq daily, Augmentin 875 b.i.d., nitroglycerin 0.4 mg p.r.n., omeprazole 20 mg p.o. b.i.d. DISCONTINUED MEDICATIONS: Rocephin, azithromycin, lisinopril, amlodipine, Lasix. HISTORY OF PRESENT ILLNESS AND HOSPITAL COURSE: An 87-year-old male with past medical history of atrial fibrillation, CAD, hypertension, hyperlipidemia who presented to the ED complaining of weakness. The patient said it started 3 days ago. He noticed generalized weakness which made him struggle to get out of bed and do his normal daily activities. He states that he fell 3 days ago and hurt his ribs on the right side. He did not seek any medical attention at that time. He states that he had 3 days of worsening urinary incontinence. Denied chest pain, shortness of breath, dysuria, abdominal pain, nausea, vomiting or diarrhea. Patient was evaluated in the [place] ED and given 1 liter normal saline, Tylenol, aspirin, Rocephin and started on a diltiazem drip for rate control. The patient was converted to p.o. diltiazem and still had intermittent segments of atrial fibrillation with rapid ventricular response. Digoxin was added based on Cardiology consultation and since that time, the patient did not have any instances of atrial fibrillation with rapid ventricular response. The patient also developed a right upper lobe pneumonia, during the course of the hospitalization, suspected secondary to aspiration pneumonia. The patient was started on Rocephin and azithromycin early in his hospital course and then converted to Zosyn and vancomycin. Patient was discharged on Augmentin. The patient was also evaluated for Altered mental status. Suspected causes were pneumonia versus digoxin toxicity versus pulmonary embolus versus delirium. Pneumonia, digoxin, and pulmonary embolus were all ruled out leaving the likely source of AMS as delirium and the patient was reoriented frequently during the stay. DISPOSITION: Stable. DISCHARGE INSTRUCTIONS: 1. Location: [facility]. 2. Diet: Honey thickened Regular. 3. Activity: As tolerated. 4. Followup: Dr. Fermín Krueger. Please continue to monitor the patient's potassium and magnesium levels as he has recently started on digoxin. We would recommend allowing for higher TSH up to 5 or 6 in light of newly started digoxin. Discussed Eliquis and fall risk with family will remain on it for now, but they will discuss further with their PCP, Dr. Fermín Krueger. [facility]
[2017-08-07] MEDS ORDERED: Magnesium Chloride 64 MG TAB PO SCH (21:00)
[2017-08-08 14:31] LABS: Folate,Hemolysate 495.1 ng/mL (Not Estab.); Hematocrit 35.9 % (37.5-51.0); RBC Folate Test Component 1379 ng/mL (>498)
--- NOTE | 2017-08-08 20:06 | EKG ---
Test Reason : COD GREEN Blood Pressure : / mmHG Vent. Rate : 099 BPM Atrial Rate : 111 BPM P-R Int : 000 ms QRS Dur : 082 ms QT Int : 312 ms P-R-T Axes : 000 002 064 degrees QTc Int : 400 ms Atrial fibrillation Nonspecific ST abnormality , probably digitalis effect Abnormal ECG When compared with ECG of 01-AUG-2017 03:32, (Unconfirmed) No significant change was found Confirmed by FRANK GOULD (2) on 08/08/2017 8:06:34 PM Referred By: NIA Confirmed By:FRANK GOULD
--- NOTE | 2017-08-08 20:10 | EKG ---
Test Reason : Blood Pressure : / mmHG Vent. Rate : 105 BPM Atrial Rate : 241 BPM P-R Int : 000 ms QRS Dur : 098 ms QT Int : 342 ms P-R-T Axes : 000 002 087 degrees QTc Int : 452 ms Atrial fibrillation with rapid ventricular response with premature ventricular or aberrantly conducte d complexes Nonspecific ST and T wave abnormality , probably digitalis effect Abnormal ECG When compared with ECG of 02-AUG-2017 11:35, (Unconfirmed) QT has lengthened Confirmed by FRANK GOULD (2) on 08/08/2017 8:09:39 PM Referred By: ADÁN Confirmed By:FRANK GOULD
--- NOTE | 2017-08-08 20:11 | EKG ---
Test Reason : REPEAT Blood Pressure : / mmHG Vent. Rate : 122 BPM Atrial Rate : 122 BPM P-R Int : 000 ms QRS Dur : 098 ms QT Int : 350 ms P-R-T Axes : 000 -07 088 degrees QTc Int : 498 ms Atrial fibrillation with rapid ventricular response with premature ventricular or aberrantly conducte d complexes Minimal voltage criteria for LVH, may be normal variant Nonspecific ST and T wave abnormality , probably digitalis effect Abnormal ECG When compared with ECG of 03-AUG-2017 07:06, (Unconfirmed) No significant change was found Confirmed by FRANK GOULD (2) on 08/08/2017 8:10:37 PM Referred By: SAVANNA Confirmed By:FRANK GOULD
--- NOTE | 2017-09-14 15:03 | EKG ---
Test Reason : Blood Pressure : / mmHG Vent. Rate : 117 BPM Atrial Rate : 131 BPM P-R Int : 000 ms QRS Dur : 090 ms QT Int : 338 ms P-R-T Axes : 000 -01 036 degrees QTc Int : 471 ms Atrial fibrillation with rapid ventricular response with premature ventricular or aberrantly conducte d complexes Abnormal ECG Confirmed by ROSALBA BURNETT ([id number]), newspaper photo editor SISI SHAH ([id number]) on 09/14/2017 3:03:22 PM Referred By: Confirmed By:ROSALBA BURNETT
== END 2017-08-07 18:50 | DRG 308 ==
LOC: ERS 03:27 → 2NO 05:34
PROVIDERS: ADMIT Student in an Organized Health Care Education/Training Program; ATTEND Student in an Organized Health Care Education/Training Program
DX: I48.0 Paroxysmal atrial fibrillation (principal); J69.0 Pneumonitis due to inhalation of food and vomit; R65.10 Systemic inflammatory response syndrome (SIRS) of non-infectious origin without acute organ dysfunction; D50.0 Iron deficiency anemia secondary to blood loss (chronic); N18.3 Chronic kidney disease, stage 3 (moderate); Z95.1 Presence of aortocoronary bypass graft; R41.0 Disorientation, unspecified; I12.9 Hypertensive chronic kidney disease with stage 1 through stage 4 chronic kidney disease, or unspecified chronic kidney disease; E03.9 Hypothyroidism, unspecified; E78.5 Hyperlipidemia, unspecified; K21.9 Gastro-esophageal reflux disease without esophagitis; E87.6 Hypokalemia; Z79.01 Long term (current) use of anticoagulants; Z79.82 Long term (current) use of aspirin; I25.10 Atherosclerotic heart disease of native coronary artery without angina pectoris; N40.1 Benign prostatic hyperplasia with lower urinary tract symptoms; N39.498 Other specified urinary incontinence; I08.0 Rheumatic disorders of both mitral and aortic valves; Z91.041 Radiographic dye allergy status; Q43.0 Meckel's diverticulum (displaced) (hypertrophic); Z91.81 History of falling
CPT/HCPCS: 36415; 36416; 70450; 71045; 71046; 74230; 78582; 80048; 80162; 80202; 82607; 82747; 82805; 83735; 83880; 84100; 84443; 85025; 85379; 87040; 87086; 93005; 93010; 93306; 94640; 96365; 96366; A4216; A9540; A9558; G8978-GP-CM; G8979-GP-CJ; G8987-GO-CK; G8988-GO-CI; G8996-GN-CK; G8996-GN-CL; G8997-GN-CJ; G8997-GN-CK; J0456; J0696; J1160; J1940; J2543; J3370; J3475; J7050; J7611